=== PATIENT | female | born 1980 | race Caucasian/White ===

== ENCOUNTER → 2022-04-23 12:11 | Outpatient (CLI) | payer OTHER, SELFPAY ==
[2022-04-23 14:29] LABS: Add Manual Diff / Slide Review NO; Basophils Absolute Auto 0 /uL (0-100); Basophils Percent Auto 0.5 % (0-2); Eosinophils Absolute Auto 100 /uL (0-450); Eosinophils Percent Auto 1.5 % (2-4); Hematocrit 33.1 % (36-46); Hemoglobin 11.5 g/dL (12.0-16.0); Lymphocytes Absolute Auto 1300 /uL (1100-4500); Lymphocytes Percent Auto 15.8 % (25-40); Mean Corpuscular HGB Conc 34.7 % (30-36); Mean Corpuscular Hemoglobin 30.3 PG (26-34); Mean Corpuscular Volume 87.5 fL (80-100); Monocytes Absolute Auto 500 /uL (0-900); Monocytes Percent Auto 6.3 % (3-14); Neutrophils Absolute Auto 6400 /uL (1500-7000); Neutrophils Percent Auto 75.9 % (50-75); Platelet Count 276 X10^3/uL (150-400); Red Blood Cell Count 3.78 X10^6/uL (4.0-5.2); Red Cell Distribution Width 13.9 % (11.6-14.8); White Blood Cell Count 8.5 X10^3/uL (4.5-11.0)
[2022-04-23 16:42] LABS: Hepatitis B Surface Antigen NEGATIVE s/c (NEGATIVE); Rubella Antibody IgG 7.6 IU/mL (>15)
[2022-04-23 16:51] LABS: HIV 1 & 2 Ab/Ag 4th Gen Combo NEGATIVE (NEGATIVE)
[2022-04-24 08:42] LABS: RPR Screen Non Reactive (Non Reactive); Varicella IgG Antibody 482 index (Immune >165)
[2022-04-25 19:36] LABS: AFP Value 111.4 ng/mL (.); Gest Age on Col Date 21.3 weeks (.); Gestational Age Ultrasound (.); Insulin Dep Diabetes No (.); OSBR Risk 1IN 2457 (.); Results Report (.); Test Results *Screen Negative* (.)
== END ==
PROVIDERS: Referring Provider Obstetrics & Gynecology; Visit Provider Obstetrics & Gynecology
DX: O09.522 Supervision of elderly multigravida, second trimester (principal)
CPT/HCPCS: 36415; 80055; 82105; 86787; 86850; 86900; 86901; 87389

== ENCOUNTER → 2022-05-22 11:14 | Outpatient (CLI) | payer OTHER, SELFPAY ==
[2022-05-22 12:38] LABS: Hematocrit 30.2 % (36-46); Hemoglobin 10.3 g/dL (12.0-16.0)
[2022-05-22 13:19] LABS: GTT (PREG) 1 Hour PP 50gm Dose 105 mg/dL (76-139)
[2022-05-22 13:26] LABS: Urine N gonorrhoeae NOT DETECTED
[2022-05-22 13:58] LABS: Urine Chlamydia NOT DETECTED
[2022-05-22 15:21] LABS: Hep C Virus Ab w/Reflex Quant NEGATIVE s/c (NEGATIVE)
== END ==
PROVIDERS: Referring Provider Obstetrics & Gynecology; Visit Provider Obstetrics & Gynecology
DX: Z34.82 Encounter for supervision of other normal pregnancy, second trimester (principal); Z11.3 Encounter for screening for infections with a predominantly sexual mode of transmission; Z3A.26 26 weeks gestation of pregnancy
CPT/HCPCS: 36415; 82950; 85014; 85018; 86803; 87491; 87591

== ENCOUNTER → 2022-08-05 08:03 | Outpatient (CLI) | payer OTHER, SELFPAY ==
[2022-08-06 17:43] LABS: Strep Grp B PCR NEG for Grp B Strep
== END ==
PROVIDERS: Visit Provider Obstetrics & Gynecology
DX: Z34.83 Encounter for supervision of other normal pregnancy, third trimester (principal); Z3A.36 36 weeks gestation of pregnancy
CPT/HCPCS: 87653

== ENCOUNTER 2022-08-20 17:52 | Inpatient (IN) | payer OTHER, SELFPAY ==
[2022-08-20 18:40] VITALS: BP 136/79
[2022-08-20 19:21] LABS: Add Manual Diff / Slide Review NO; Basophils Absolute Auto 0 /uL (0-100); Basophils Percent Auto 0.5 % (0-2); Eosinophils Absolute Auto 100 /uL (0-450); Eosinophils Percent Auto 0.9 % (2-4); Hematocrit 35.9 % (36-46); Hemoglobin 12.2 g/dL (12.0-16.0); Lymphocytes Absolute Auto 1500 /uL (1100-4500); Lymphocytes Percent Auto 15.6 % (25-40); Mean Corpuscular HGB Conc 34.2 % (30-36); Mean Corpuscular Hemoglobin 29.4 PG (26-34); Mean Corpuscular Volume 86.1 fL (80-100); Monocytes Absolute Auto 600 /uL (0-900); Monocytes Percent Auto 6.2 % (3-14); Neutrophils Absolute Auto 7500 /uL (1500-7000); Neutrophils Percent Auto 76.8 % (50-75); Platelet Count 185 X10^3/uL (150-400); Red Blood Cell Count 4.16 X10^6/uL (4.0-5.2); Red Cell Distribution Width 13.6 % (11.6-14.8); White Blood Cell Count 9.7 X10^3/uL (4.5-11.0)
[2022-08-20 19:33] LABS: COVID19 -Nasal RAPID Negative (Negative)
[2022-08-20] MEDS: miSOPROStoL 25 MCG TABLET VAG ×2 (20:03→23:59)
[2022-08-21] MEDS: miSOPROStoL 25 MCG TABLET VAG (04:10)
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
[2022-08-21] MEDS: fentaNYL 100 MCG/2 ML INJ 50 MCG IV (10:39)
[2022-08-21] MEDS: LACTATED RINGERS 1,000 ML 100 ML IV ×2 (11:06→14:15)
[2022-08-21] MEDS: OXYTOCIN PREMIX 30 UNIT/500 ML PLAST..BAG IV (11:06)
--- NOTE | 2022-08-21 18:39 | PM.OBPNLAB ---
Date/Time Date Patient Seen: 08/21/22 Time Patient Seen: 13:20 Pain Control Pain control: tolerating well Pelvic Exam Dilation (cm): 3 Effacement (%): 85 station: -1 Amniotic membrane status: Ruptured (Clear fluid) Contractions Contractions on admission: none Monitor mode: External Pitocin rate (mU/min): 6 Contraction frequency (min): 3 Contraction duration (min): 1 Contraction pattern: Regular Contraction intensity: Moderate Status status: Category l Heart Rate Baseline: 140 Monitor Accelerations: Present Monitor Decelerations: Absent Monitor Variability: Moderate Assessment and Plan Assessment: induction ongoing Comments: AROM with clear amniotic fluid Epidural prn Expectant management to
--- NOTE | 2022-08-21 18:42 | PM.OBPNLAB ---
Date/Time Date Patient Seen: 08/21/22 Time Patient Seen: 18:42 Pain Control Pain control: epidural Pelvic Exam Dilation (cm): 4 Effacement (%): 85 station: -1 Amniotic membrane status: Ruptured (Clear fluid) Contractions Contractions on admission: none Monitor mode: External Pitocin rate (mU/min): 4 Contraction frequency (min): 3 Contraction duration (min): 1 Contraction pattern: Regular Contraction intensity: Strong/Firm Status status: Category l Heart Rate Baseline: 140 Monitor Accelerations: Present Monitor Decelerations: Absent Monitor Variability: Moderate Assessment and Plan Assessment: induction ongoing Plan: continuous present management
[2022-08-21] MEDS: FENT 2MCG/ML BUPIV 0.125% EPI 200 MCG/100 ML PLAST..BAG 12 MCG EPIDURAL (20:10)
--- NOTE | 2022-08-21 21:15 | PM.OBPNLAB ---
Date/Time Date Patient Seen: 08/21/22 Time Patient Seen: 21:15 Pain Control Pain control: epidural Pelvic Exam Dilation (cm): 4 Effacement (%): 85 station: -1 Amniotic membrane status: Ruptured (Clear fluid) Contractions Monitor mode: External Pitocin rate (mU/min): 10 Contraction frequency (min): 3 Contraction duration (min): 1 Contraction pattern: Regular (coupling) Contraction phase: Resting Contraction intensity: Moderate Status status: Category l Heart Rate Baseline: 145 Monitor Accelerations: Present Monitor Decelerations: Absent Monitor Variability: Moderate Assessment and Plan Assessment: induction ongoing Comments: IUPC placed to assess adequacy of contractions
[2022-08-22] MEDS: LACTATED RINGERS 1,000 ML 100 ML IV ×3 (00:06→09:59)
[2022-08-22] MEDS: FENT 2MCG/ML BUPIV 0.125% EPI 200 MCG/100 ML PLAST..BAG 12 MCG EPIDURAL ×3 (04:17→12:41)
[2022-08-22] MEDS: CEFAZOLIN 2 GM/100 ML PREMIX 100 ML IV ×2 (09:52→14:43)
--- NOTE | 2022-08-22 11:23 | PM.OBPNLAB ---
Date/Time Date Patient Seen: 08/22/22 Time Patient Seen: 08:50 Pain Control Pain control: epidural Comments: Pitocin off for a few hours overnight, then restarted at 2 am Pelvic Exam Dilation (cm): 4 Effacement (%): 85 station: -1 Amniotic membrane status: Ruptured (Clear fluid) Contractions Monitor mode: External Pitocin rate (mU/min): 14 Contraction frequency (min): 4 Contraction duration (min): 1 Contraction pattern: Regular (coupling) Contraction phase: Resting Contraction intensity: Strong/Firm Status status: Category l Heart Rate Baseline: 150 Monitor Accelerations: Present Monitor Decelerations: Absent Monitor Variability: Moderate Assessment and Plan Assessment: induction ongoing Comments: Side to side Will reassess in a few hours, if no change, will proceed to primary C section
--- NOTE | 2022-08-22 13:14 | PM.OBPNLAB ---
Date/Time Date Patient Seen: 08/22/22 Time Patient Seen: 13:15 Pain Control Pain control: epidural Pelvic Exam Dilation (cm): 4 Effacement (%): 85 station: -1 Amniotic membrane status: Ruptured (Clear fluid) Contractions Monitor mode: External Pitocin rate (mU/min): 12 Contraction frequency (min): 3 Contraction duration (min): 1 Contraction pattern: Regular (coupling) Contraction phase: Resting Contraction intensity: Strong/Firm Status status: Category l Heart Rate Baseline: 150 Monitor Accelerations: Present Monitor Decelerations: Variable Monitor Variability: Minimal Assessment and Plan Assessment: induction ongoing Plan: Comments: Discussed with patient and family that there has been no change since last evening. We have documented adequate contractions with an intrauterine pressure catheter. We have tried Pitocin. We stopped the Pitocin for a short period of time and then started it 3 hrs later. We have tried position changes. We will proceed to primary low-transverse section. The risks, benefits, and alternatives to the procedure were explained to the patient. The risks including bleeding, infection, injury to the bowel, bladder, or ureters. She understands these risks and agrees to proceed. A full par Q was held and consent form was signed.
--- NOTE | 2022-08-22 13:17 | PM.PREOP ---
Pre-operative Note COVID-19 COVID-19 status: Negative Result date/Date tested (Pos, Neg/Pending): 08/20/22 Criteria for continued procedure: Non-surgical alternatives not available or appropriate per current SOC Interval Note History & Physical reviewed/Exam performed by Physician: Yes Changes to H&P: No H&P completed within 30 days and has changed as indicated here:: 08/21/22
--- NOTE | 2022-08-22 14:23 | SUR.OPER ---
Supine on Padded OR bed, head on pillow, safety belt at thigh, arms secured on padded arm boards at <90 degrees abduction. Bump under right buttock. Legs uncrossed with pillow under knees, gel pad to heels, tape over blanket to lower legs.
--- NOTE | 2022-08-22 14:58 | SUR.OPER ---
VIABLE FEMALE INFANT DELIVERED AT 1455. CORD BLOOD AND PLACENTA TO OB WITH RN
[2022-08-22] MEDS: ACETAMINOPHEN IV 1,000 MG/100 ML VIAL 400 MG IV (15:04)
[2022-08-22] MEDS: LIDOCAINE 1% 20 ML 10 ML INJ (15:26)
[2022-08-22 15:40] VITALS: BP 123/75; PULSE 94; RESP 11; TEMP 36.8; O2SAT 97
[2022-08-22 15:45] VITALS: BP 124/83; PULSE 90; RESP 11; O2SAT 99
[2022-08-22 15:50] VITALS: BP 132/83; PULSE 88; RESP 12; O2SAT 98
--- NOTE | 2022-08-22 15:53 | P.OP_ITS ---
Operative Date/Time/Diagnoses Date of procedure: 08/22/22 Time of procedure: 15:53 Pre-op diagnosis: Thirty-nine weeks gestation Stage I arrest of labor Post-op diagnosis: same Procedure & Clinicians Procedure: Primary low-transverse section Same procedure as scheduled: Yes Indications: 39 weeks gestation Stage I arrest of labor Surgeon: Chanelle Godinez Click Yes if Unassisted: No Wrecking Supervisor: Aminata Jeffrey Reason for Wrecking Supervisor: The trust administrative assistant was necessary to retract upon entry into the abdomen and uterus. She assisted with fundal pressure in delivery of the infant. She assisted in closure with retraction and clipping of suture. She closed the contralateral fascia. Anesthesia Type: Epidural (With Duramorph) Operative Notes Findings: Live female in the RAHDA presentation Nuchal cord x1 Normal uterus, tubes, and ovaries Closure Type: primary Specimen(s): cord blood and placenta Intraoperative meds administered: Acetaminophen, Duramorph, Ketorolac and Pitocin Applied: Catheter (To continuous drainage) Estimated Blood Loss (mL): 300 Blood products transfused: none Complications: none Baby 1: Gender: Female Presentation: vertex Position: Right Occiput Anterior Placental Delivery Description: Expressed Cord Vessel Description: 3 Vessels, Nuchal Cord (x1), Loose and Reduced score (1 min): 8 score (5 min): 9 weight: 7 lb 7.6 oz Narrative: The patient was taken to the operating room where she was placed in the dorsal supine position with a leftward tilt. She was prepped and draped in the usual sterile fashion. Once epidural analgesia was found to be adequate, a Pfannenstiel skin incision was made 2 finger breaths above the pubic symphysis and carried through to the underlying layer of fascia. The fascia was nicked in the midline and the incision extended bilaterally with the Amin scissors. Superior aspect of the fascial incision was grasped with the William clamps, elevated, and underlying rectus muscles dissected off sharply and bluntly. In a similar fashion the inferior aspect of the incision was grasped with the William clamps, elevated, and the underlying rectus muscles dissected off sharply and bluntly. The rectus muscles were in the midline. The peritoneum was identified and grasped between 2 hemostats. The peritoneum was entered sharply with the Metzenbaum scissors. This incision was extended superiorly and inferiorly with good visualization of the bladder. The bladder blade was inserted. The vesicouterine peritoneum was identified, grasped with a pickup, and entered sharply with the Metzenbaum scissors. This incision was extended bilaterally and the bladder flap created digitally. The bladder blade was reinserted. The lower uterine segment was incised in the transverse fashion. Upon entering the uterus, there was copious clear amniotic fluid. The infant's head was delivered with vacuuming assistance. A nuchal cord x1 was reduced. The remainder of the body delivered without difficulty. After 1 minute, the cord was double clamped and cut. Cord bloods were obtained. The placenta delivered intact with a three-vessel cord. The fundus was massaged to firm. Pitocin was given in the IV fluids. The uterine incision was closed with #1 Chromic in a running interlocking fashion. A second lower of the same suture was used for an imbricating layer. Hemostasis was achieved. The tubes and ovaries were examined and were found to be normal. The gutters were cleared of all clots and debris. The bladder flap was reapproximated using 2 0 Vicryl in a running fashion. The parietal peritoneum was closed using 2 0 Vicryl in a running fashion. The subcutaneous layer was copiously irrigated with warm normal saline. Five simple interrupted sutures with 3-0 Vicryl were placed to reapproximate. The skin was closed with 4-0 Monocryl in a subcuticular fashion. 10 cc of 0.25% Marcaine with epinephrine were injected subcuticularly. Steri- Strips and an Aquacel dressing were placed. The uterus was expressed of a small amount of old blood. Sponge, lap, and instrument counts were correct x2. The patient tolerated the procedure well, and was taken to PACU in stable condition. Post-operative Condition: stable Disposition: PACU Aftercare: routine postop
[2022-08-22 15:55] VITALS: BP 130/86; PULSE 90; RESP 11; O2SAT 99
[2022-08-22] MEDS: HYDROMORPHONE 2 MG INJ IV (15:56)
[2022-08-22] MEDS: OXYCODONE IR 5 MG TABLET PO (16:02)
[2022-08-22 16:10] VITALS: BP 111/75; PULSE 91; RESP 11; O2SAT 97
[2022-08-22 16:21] VITALS: BP 125/76; PULSE 90; RESP 14; TEMP 36.8; O2SAT 96
--- NOTE | 2022-08-22 17:40 | SUR.PHASEI ---
Report given to Polly in PACU when baby was brought to mom. Patient transferred to the center. VS stable. Fundus and peripad checked with Polly.
--- NOTE | 2022-08-22 17:45 | SUR.PHASEI ---
10mg pitocin in LR hung by Dr. Hagen in PACU.
[2022-08-22] MEDS: KETOROLAC 30 MG/ML VIAL IV (21:35)
[2022-08-23] MEDS: KETOROLAC 30 MG/ML VIAL IV ×2 (03:04→09:39)
[2022-08-23 04:21] LABS: Add Manual Diff / Slide Review NO; Basophils Absolute Auto 100 /uL (0-100); Basophils Percent Auto 0.5 % (0-2); Eosinophils Absolute Auto 100 /uL (0-450); Eosinophils Percent Auto 0.9 % (2-4); Hematocrit 33.8 % (36-46); Hemoglobin 11.4 g/dL (12.0-16.0); Lymphocytes Absolute Auto 1500 /uL (1100-4500); Lymphocytes Percent Auto 12.8 % (25-40); Mean Corpuscular HGB Conc 33.8 % (30-36); Mean Corpuscular Hemoglobin 29.3 PG (26-34); Mean Corpuscular Volume 86.6 fL (80-100); Monocytes Absolute Auto 1000 /uL (0-900); Monocytes Percent Auto 8.2 % (3-14); Neutrophils Absolute Auto 9300 /uL (1500-7000); Neutrophils Percent Auto 77.6 % (50-75); Platelet Count 152 X10^3/uL (150-400); Red Cell Distribution Width 13.7 % (11.6-14.8)
[2022-08-23] MEDS: DOCUSATE 100 MG CAPSULE 200 MG PO (09:38)
[2022-08-23] MEDS: OXYCODONE IR 5 MG TABLET PO ×2 (09:39→20:51)
[2022-08-23] MEDS: ACETAMINOPHEN 325 MG TABLET 650 MG PO ×4 (09:39→23:11)
[2022-08-23] MEDS: PRENATAL VIT,CALC/IRON/FOLIC 1 TABLET 1 TAB PO (09:40)
--- NOTE | 2022-08-23 12:12 | PM.OBPN.1 ---
Subjective - OB Subjective Patient comments: no complaints [place] baby status: doing well feeding status: exclusively breast feeding Date Patient Seen: 08/23/22 Time Patient Seen: 12:12 Exam Vital Signs (past 8 hours): Oxygen Delivery Method Room Air Narrative Exam Narrative: Generally: Lying in bed, NAD Lungs: CTA bilat CV: RRR Abd: Soft, NT Incision: CDI with Aquacel Ext: 1+ edema Objective Labs Result Diagrams: 08/23/22 03:30 Labs: Laboratory Results - last 24 hr 08/23/22 03:30 WBC 12.0 H RBC 3.90 L Hgb 11.4 L Hct 33.8 L MCV 86.6 MCH 29.3 MCHC 33.8 RDW 13.7 Plt Count 152 Neut % (Auto) 77.6 H Lymph % (Auto) 12.8 L [place] % (Auto) 8.2 Eos % (Auto) 0.9 L Baso % (Auto) 0.5 Neut # (Auto) 9300 H Lymph # (Auto) 1500 [place] # (Auto) 1000 H Eos # (Auto) 100 Baso # (Auto) 100 Assessment & Plan Plan day: 1 plan OB: routine postop care Time Spent With Patient Time: Total time spent is greater than 50% in coordination of care (as documented) at patient's floor/unit and/or counseling patient: Time with patient: less than 15 minutes
[2022-08-23] MEDS: OXYCODONE IR 10 MG TABLET PO (16:45)
[2022-08-23] MEDS: IBUPROFEN 600 MG TABLET PO (16:45)
[2022-08-23 20:51] VITALS: TEMP 36.7
[2022-08-23] MEDS: MAGNESIUM HYDROXIDE 30 ML UDC PO (20:52)
[2022-08-24] MEDS: OXYCODONE IR 5 MG TABLET PO ×2 (02:09→06:00)
[2022-08-24] MEDS: ACETAMINOPHEN 325 MG TABLET 650 MG PO (06:01)
[2022-08-24] MEDS: IBUPROFEN 600 MG TABLET PO (06:01)
--- NOTE | 2022-08-24 07:14 | PM.OBDS.1 ---
Discharge Providers Provider Date of admission: 08/20/22 17:52 Discharge Date: 08/24/22 Primary care physician: Doctor Jai MD Consults: 08/22/22 16:42 Consult to Bench Worker Hollow Handle Routine Comment: Anesthesia Discharge provider: Chanelle Godinez MD Summary Hospital Course Date Patient Seen: 08/24/22 Time Patient Seen: 07:15 Diagnoses: 39 weeks gestation Advanced maternal age Cervical ripening with misoprostol Pitocin induction of labor Prolonged ruptured membranes Primary low-transverse section Stage I arrest of labor Hospital Course: Patient is a 41-year-old 3 para 2 presented on August 20, 2022 for cervical ripening. On 08/21/22 her cervix was favorable and she was started on Pitocin. She received an epidural for pain management. Artificial rupture of membranes was performed of clear amniotic fluid. She was stalled at 4 cm. An intrauterine pressure catheter was placed to insure adequate contractions. The Pitocin was shut off for a few hours overnight. It was restarted at 2:00 a.m.. By the morning of August 22, 2022 she still had not made any cervical change. Patient underwent a primary low-transverse section without complication. Her course was unremarkable. She is discharged home on postop day # 2. Peripartum Data Infant Delivery Method: Section Laceration Description: None Episiotomy description: None Procedures: Cervical ripening with misoprostol Pitocin induction of labor Epidural analgesia Artificial rupture of membranes Intrauterine pressure catheter Primary low-transverse section complications: none 1: Gender: Female Disposition of : home Status at Discharge Cognitive/behavioral status at discharge: oriented Functional status at discharge: independent ambulation Overall status at discharge: patient is progressing back to baseline Time Spent with Patient Time attestation: Total time spent providing and/or coordinating discharge services: Time spent: Less than 30 minutes Objective Labs Result Diagrams: 08/23/22 03:30 Exam Vital Signs (past 8 hours): Oxygen Delivery Method Room Air Narrative Exam Narrative: Generally: Patient is sitting up in bed, nursing , no acute distress Lungs: Clear to auscultation bilaterally Cardiovascular: Regular rate and rhythm Abdomen: Soft and flat Fundus: Firm at U -2 Incision: Clean dry and intact with Aquacel dressing Extremities: No edema, negative [place] Discharge Plan Discharge Plan Patient Disposition: Home Provider Discharge Comment: Call with fever, chills, or redness or drainage around the incision, or bleeding vaginally more than a pad in an hour Tylenol 650 mg every 6 hours as needed Ibuprofen 600 mg every 6 hours as needed Discharge orders & Medications Prescriptions: New oxycodone 5 mg tablet 5 mg PO Q4H PRN (Reason: pain) Qty: 20 0RF Continued ferrous sulfate [FeroSul] 325 mg (65 mg iron) tablet 325 mg PO DAILY zinc, magnesium, calcium, vit D3 bottle See Rx Instructions .ROUTE .COMPLEX Qty: 0 Rx Instructions: unknown dose; pt takes OTC once a day prenat.vits,tabatha,ofp-wmln-whwun Tablet 1 tab PO DAILY Follow up/Referrals: Chanelle Godinez MD [Physician] - 3-5 Days (Please schedule an Aquacel dressing removal for August 28, 2022 ) Diet/Activity/Treatments Diet: Regular Activity: No heavy lifting Take stairs 1 at a time Skin/Wound/Dressing Care Report to your healthcare provider any signs of infection, such as:: chills, fever, increased pain, unusual drainage and unusual redness Dressing: Do not remove Visit Report/Discharge Packet Instructions: DI for , DI for Prescription Opioid Use Discharge Data Primary Care Provider: Miscellaneous,Doctor Attending Provider: Chanelle Godinez
[2022-08-24 09:49] VITALS: BP 122/77; PULSE 85; RESP 15; TEMP 36.7
== END 2022-08-24 10:10 | disposition home or self-care (01) | DRG 788 ==
PROVIDERS: Admitting Provider Obstetrics & Gynecology; Referring Provider Obstetrics & Gynecology; Visit Provider Obstetrics & Gynecology
PROC: 10D00Z1 Extraction of Products of Conception, Low, Open Approach (ICD-10-PCS; CPT 59514; principal; 2022-08-22 14:30)
DX: O62.1 Secondary uterine inertia (principal); Z3A.39 39 weeks gestation of pregnancy; Z37.0 Single live birth; Z20.822 Contact with and (suspected) exposure to COVID-19
CPT/HCPCS: 01967; 01968; 36415; 59050; 59510; 59514; 85025; 86850; 86900; 86901; 87635; C9803; G0379; J0131; J0690; J1170; J1885; J2274; J2590; J2704; J3010

== ENCOUNTER 2025-06-16 15:26 | Emergency (ER) | payer OTHER, SELFPAY ==
--- NOTE | 2025-06-16 15:30 | DI.US.S_ITS ---
PROCEDURE: US OB <= 14 WEEKS FETUS INDICATIONS: BLEEDING, CRAMPING OUTSIDE/PRIOR DATING DATA: Last menstrual period (LMP): Not provided. LMP-based estimated date of delivery (MYRA): Not provided. TECHNIQUE: Real-time scanning was performed of the fetus and maternal pelvic organs, with image documentation. Endovaginal scanning was also performed to better visualize the fetus and maternal ovaries. COMPARISON: None. FINDINGS: There is an irregular intrauterine gestational sac with a pole. [place]-rump length measures 0.5 cm. No cardiac activity is identified. Maternal organs: Ovaries within normal limits. IMPRESSION: Findings suspicious for but not diagnostic of failed . Given the associated irregularity of the gestational sac and vaginal bleeding failed is considered most likely, however close clinical and laboratory follow-up is recommended. We strive to produce accurate, complete, and clear reports of imaging services. To assist us in improving patient care, this report was composed using standard report templates and voice recognition software. Therefore, it may contain abnormal punctuation, insertions and/or omissions. Occasional wrong-word or sound-alike substitutions may occur. Though we review the report and make efforts to correct it, we do recommend that the report be read carefully in proper context to recognize any text inaccuracies. Dictated by: Tawana Alberto M.D. on 06/16/2025 at 15:57 Approved by: Tawana Alberto M.D. on 06/16/2025 at 16:01
[2025-06-16 15:31] VITALS: BP 130/58; PULSE 79; RESP 16; O2SAT 100; BMI 22.8
[2025-06-16 15:52] LABS: Add Manual Diff / Slide Review NO; Hematocrit 39.3 % (36-46); Hemoglobin 13.2 g/dL (12.0-16.0); Lymphocytes Absolute Auto 2000 /uL (1100-4500); Mean Corpuscular HGB Conc 33.7 % (30-36); Mean Corpuscular Hemoglobin 29.3 PG (26-34); Mean Corpuscular Volume 87.0 fL (80-100); Platelet Count 292 X10^3/uL (150-400)
[2025-06-16 16:03] LABS: Alanine Aminotransferase 31 IU/L (<35); Albumin 4.4 g/dL (3.5-5.0); Albumin Globulin Ratio 1.4 (1.0-2.8); Alkaline Phosphatase 65 U/L (38-126); Blood Urea Nitrogen 12 mg/dL (7-17); Calcium 9.3 mg/dL (8.4-10.2); Carbon Dioxide 24 mmol/L (22-32); Chloride 104 mmol/L (98-107); Estimated Glomerular Filt Rate > 60 mL/min (>60); Globulin 3.1 g/dL (1.7-4.1); Glucose 93 mg/dL (70-99); HEMOLYSIS < 15 (0-50); Potassium 3.9 mmol/L (3.4-5.1); Sodium 137 mmol/L (137-145); Total Protein 7.5 g/dL (6.3-8.2)
[2025-06-16 16:19] LABS: HCG Quantitative /Beta subunit 2876.8 mIU/mL
[2025-06-16] MEDS: ACETAMINOPHEN 325 MG TABLET 650 MG PO (17:08)
--- NOTE | 2025-06-16 17:08 | ED_ITS ---
HPI - General Chief complaint: OB/Uterine Contractions Stated complaint: 14 weeks , bleeding ,cramping 3xdays Time Seen by Provider: 06/16/25 16:43 History of Present Illness HPI Narrative: 44-year-old female with some lower abdominal cramping for the past 3 days, saw some spotting yesterday, today had a little bit more bleeding especially here in the ER. Patient is approximately 14 weeks gestation according to her LMP. Related Data Home Medications ?Medication ?Instructions ?Recorded ?Confirmed ferrous sulfate 325 mg (65 mg 325 mg PO DAILY 03/05/21 06/06/25 iron) tablet (FeroSul) zinc, magnesium, calcium, vit D3 See Rx Instructions . Route 02/10/22 11/23/24 .COMPLEX ##0 prenat.vits,tabatha,[id number] 1 tab PO DAILY 04/17/22 06/06/25 cholecalciferol (vitamin D3) 125 250 mcg PO DAILY 08/2306/06/25 mcg (5,000 unit) capsule Previous Rx's ?Medication ?Instructions ?Recorded dextroamphetamine-amphetamine 10 10 mg PO DAILY #90 ta bs 05/01/25 mg tablet (Adderall) dextroamphetamine-amphetamine ER 40 mg (2 x 20 mg) PO QAM #180 caps 05/01/25 20 mg 24hr capsule,extend release bupropion HCl 150 mg 24 hr tablet, 300 mg (2 x 150 mg) PO DAILY #180 05/09/25 extended release tabs misoprostol 200 mcg tablet 800 mcg (4 x 200 mcg) PO .o ne time 06/16/25 (Cytotec) #4 tabs ondansetron 4 mg disintegrating 4 mg PO Q6H PRN nausea and 06/16/25 tablet vomiting #14 tabs oxycodone 5 mg tablet 5 mg PO Q6H PRN pain #14 tab s 06/16/25 Allergies Allergy/AdvReac Type Severity Reaction Status Date / Time Sulfa (Sulfonamide Allergy Severe ANAPHYLAXIS Verified 06/06/25 08:22 Antibiotics) Review of Systems Review of Systems ROS Unobtainable: All systems reviewed & are unremarkable except as noted in HPI and below Exam Narrative Exam Narrative: General: Patient appears to be in no acute distress, acting appropriately Head: normocephalic, atraumatic, HEENT: Pupils equal round reactive, eyes tracking well, neck supple, no JVD Heart: regular rate and rhythm, no murmurs, rubs, or gallops heard Lungs: clear to auscultation, no adventitious sounds Abdomen: soft , mildly tender to palpation in lower abdominal area , nondistended, positive bowel sounds Neurological: no focal neurological signs, moving all extremities well, alert and oriented x3, Psych: good judgment ,good insight, mood is normal. Initial Vital Signs Initial Vital Signs: Vital Signs Pulse Rate 79 06/16/25 15:31 Respiratory Rate 16 06/16/25 15:31 Blood Pressure 130/58 L 06/16/25 15:31 Pulse Oximetry 100 06/16/25 15:31 Oxygen Delivery Method Room Air 06/16/25 15:31 Course Course Course Narrative: Ob ultrasound showed a inevitable with unexposed of the gestational sac. Orders Ordered: ED Orders 06/16/25 15:30 US OB <= 14 weeks fetus Stat 06/16/25 15:40 Complete Blood Count AUTO DIFF Stat Comprehensive Metabolic Panel Stat HCG Quantitative /Beta subunit Stat 06/16/25 16:25 Type and Screen Stat Discontinued Medications Acetaminophen (Acetaminophen 325 Mg Tablet) 650 mg PO NOW ONE Stop: 06/16/25 17:06 Last Admin: 06/16/25 17:08 Dose: 650 mg Consultations Consultation #1: Consultation done with OB doctor Pati who agreed that the patient most likely has a miscarriage but is too early in her gestational age to be called a miscarriage. We will go ahead and treat as an inevitable . Vital Signs Vital signs: Vital Signs - 8 hr 06/16/25 15:31 06/16/25 17:27 Pulse Rate 79 75 Respiratory Rate 16 16 Blood Pressure 130/58 L 126/58 L Pulse Oximetry 100 100 Oxygen Delivery Method Room Air Room Air MDM - OB/Uterine Contractions Differential Diagnosis Differential diagnosis: Likely other (miscarriage/threatened and inevitable ) Lab Data 06/16/25 15:40 06/16/25 15:40 Labs: Lab Results 06/16/25 06/16/25 Range/Units 15:40 16:25 WBC 9.7 (4.5-11.0) X10^3/uL RBC 4.52 (4.0-5.2) X10^6/uL Hgb 13.2 (12.0-16.0) g/dL Hct 39.3 (36-46) % MCV 87.0 (80-100) fL MCH 29.3 (26-34) PG MCHC 33.7 (30-36) % RDW 13.7 (11.6-14.8) % Plt Count 292 (150-400) X10^3/uL Neut % (Auto) 66.9 (50-75) % Lymph % (Auto) 20.7 L (25-40) % [place] % (Auto) 7.0 (3-14) % Eos % (Auto) 4.7 H (2-4) % Baso % (Auto) 0.7 (0-2) % Neut # (Auto) 6500 (9533-5883) /uL Lymph # (Auto) 2000 (5518-0088) /uL [place] # (Auto) 700 (0-900) /uL Eos # (Auto) 500 H (0-450) /uL Baso # (Auto) 100 (0-100) /uL Sodium 137 (137-145) mmol/L Potassium 3.9 (3.4-5.1) mmol/L Chloride 104 (98-107) mmol/L Carbon Dioxide 24 (22-32) mmol/L BUN 12 (7-17) mg/dL Creatinine 0.64 (0.52-1.04) mg/dL Estimated GFR > 60 (>60) mL/min BUN/Creatinine Ratio 18.8 (6-22) Glucose 93 (70-99) mg/dL Calcium 9.3 (8.4-10.2) mg/dL Total Bilirubin 0.8 (0.2-1.3) mg/dL AST 26 (14-36) IU/L ALT 31 (<35) IU/L Alkaline Phosphatase 65 (38-126) U/L Total Protein 7.5 (6.3-8.2) g/dL Albumin 4.4 (3.5-5.0) g/dL Globulin 3.1 (1.7-4.1) g/dL Albumin/Globulin Ratio 1.4 (1.0-2.8) HCG, Quant 2876.8 mIU/mL Blood Type O Positive Antibody Screen Negative MDM Narrative Medical decision making narrative: 44-year-old female with most likely a miscarriage situation. CBC is okay. We will go ahead and give Cytotec 800 mcg p.o buccaly in order to complete the miscarriage. Patient given strict precautions to return for severe bleeding. Also given some pain medication and nausea medication to be used prior to the Cytotec. Follow up with OB this week. Discharge Plan Departure Patient Disposition: Home Clinical Impression: , inevitable Instructions: Dealing With Miscarriage Activity Restrictions/Additional Instructions: Follow-up having severe bleeding in the ER. Follow-up with OB in her office this coming week. call to make appointment this coming week. Prescriptions: New oxycodone 5 mg tablet 5 mg PO Q6H PRN (Reason: pain) Qty: 14 0RF ondansetron 4 mg tablet,disintegrating 4 mg PO Q6H PRN (Reason: nausea and vomiting) Qty: 14 0RF misoprostol [Cytotec] 200 mcg tablet 800 mcg PO .one time Qty: 4 0RF Rx Instructions: give buccally and allow for dissolving No Action ferrous sulfate [FeroSul] 325 mg (65 mg iron) tablet 325 mg PO DAILY bupropion HCl 150 mg tablet extended release 24 hr 300 mg PO DAILY Qty: 180 3RF zinc, magnesium, calcium, vit D3 bottle See Rx Instructions .ROUTE .COMPLEX Qty: 0 Rx Instructions: unknown dose; pt takes OTC once a day dextroamphetamine-amphetamine [Adderall] 10 mg tablet 10 mg PO DAILY Qty: 90 0RF Rx Instructions: Take as afternoon booster dose. dextroamphetamine-amphetamine 20 mg capsule,extended release 24hr 40 mg PO QAM Qty: 180 0RF prenat.vits,tabatha,[id number] Tablet 1 tab PO DAILY cholecalciferol (vitamin D3) 125 mcg (5,000 unit) capsule 250 mcg PO DAILY Referrals: Miscellaneous,DoctorMD [Primary Care Provider, Medical] Tawana Krueger MD [Physician, BOX OFFICE ATTENDANT] Stand Alone Forms: Patient Portal/API
[2025-06-16 17:27] VITALS: BP 126/58; PULSE 75; RESP 16; O2SAT 100
== END 2025-06-16 17:28 | disposition home or self-care (01) ==
PROVIDERS: Emergency Provider Family Medicine
DX: O03.4 Incomplete spontaneous abortion without complication (principal)
CPT/HCPCS: 76801; 76817; 80053; 84702; 85025; 86850; 86900; 86901; 99283; 99284